=== PATIENT | female | born 1975 | race Caucasian/White ===

== ENCOUNTER → 2018-09-07 11:27 | Outpatient (CLI) | payer OTHER, MEDICAID, SELFPAY ==
[2018-09-07 12:01] LABS: Specimen Label KIT TEST
[2018-09-07 12:29] LABS: Add Manual Diff / Slide Review NO; Basophils Absolute Auto 0 /uL (0-100); Basophils Percent Auto 0.4 % (0-2); Eosinophils Absolute Auto 0 /uL (0-450); Eosinophils Percent Auto 0.7 % (2-4); Hematocrit 40.8 % (36-46); Hemoglobin 13.9 g/dL (12.0-16.0); Lymphocytes Absolute Auto 1000 /uL (1100-4500); Mean Corpuscular HGB Conc 34.1 % (30-36); Mean Corpuscular Hemoglobin 30.3 PG (26-34); Monocytes Absolute Auto 400 /uL (0-900); Monocytes Percent Auto 7.3 % (3-14); Neutrophils Absolute Auto 4300 /uL (1500-7000); Neutrophils Percent Auto 74.6 % (50-75); Platelet Count 307 X10^3/uL (150-400); Red Blood Cell Count 4.58 X10^6/uL (4.0-5.2); Red Cell Distribution Width 15.1 % (11.6-14.8); White Blood Cell Count 5.8 X10^3/uL (4.5-11.0)
[2018-09-07 12:30] LABS: Appearance Urine UA CLEAR; Bilirubin Urine UA NEGATIVE (NEGATIVE); Color Urine UA YELLOW; Glucose Urine UA NEGATIVE (Negative); Ketones Urine UA NEGATIVE (NEGATIVE); Leukocyte Esterase Urine UA NEGATIVE (NEGATIVE); Nitrite Urine UA NEGATIVE (Negative); Occult Blood Urine UA NEGATIVE (Negative); Protein Urine UA TRACE (Negative); Specific Gravity Urine UA 1.015 (1.000-1.035); Urobilinogen Urine UA 0.2 E.U./dL (0.2)
[2018-09-07 13:05] LABS: BUN Creatinine Ratio 22.5 (6-22); Blood Urea Nitrogen 9 mg/dL (7-17); Estimated Glomerular Filt Rate > 60.0 mL/min (>60)
[2018-09-07 17:28] LABS: Hepatitis B Surface Antigen NEGATIVE s/c (NEGATIVE)
[2018-09-07 18:00] LABS: HIV 1 and 2 Antibody NEGATIVE (NEGATIVE); Hep C Virus Ab w/Reflex Quant NEGATIVE s/c (NEGATIVE)
[2018-09-09 14:06] LABS: RPR Screen Nonreactive (Nonreactive)
== END ==
PROVIDERS: PCP Family Medicine; Visit Provider Specialist
DX: Z34.81 Encounter for supervision of other normal pregnancy, first trimester (principal); O16.1 Unspecified maternal hypertension, first trimester
CPT/HCPCS: 36415; 80055; 81003; 82565; 84520; 86703; 86787; 86803; 86850; 86900; 86901; 87086

== ENCOUNTER → 2018-09-28 11:39 | Outpatient (CLI) | payer OTHER, MEDICAID, SELFPAY ==
[2018-10-04 17:13] LABS: AFP, Serum 33.9 ng/mL; Calc Gestational Age 15.1; Est Date Determined by ULTRASOUND; Maternal Weight 168 lbs; Number of Fetuses 1; Prev Pregnancies Down Syndrome NOT GIVEN
[2018-10-05 17:43] LABS: AFP, Serum 38.6 ng/mL; Calc Gestational Age 15.1; Cigarette Smoker N; Donated Egg NOT GIVEN; Donor Egg Age NOT GIVEN; Estriol, Free 0.39 ng/mL; Inhibin A, Dimeric 281 pg/mL; Maternal Weight 168 lbs; Number of Fetuses 1; Previous Pregnancy Down Syndro NOT GIVEN; hCG, MoM 3.56; hCG, Serum 141.8 IU/mL
== END ==
PROVIDERS: PCP Family Medicine; Visit Provider Specialist
DX: Z3A.15 15 weeks gestation of pregnancy (principal); Z34.82 Encounter for supervision of other normal pregnancy, second trimester
CPT/HCPCS: 36415; 82105; 82677; 84702; 86336

== ENCOUNTER → 2018-11-03 10:49 | Outpatient (CLI) | payer OTHER, MEDICAID, SELFPAY ==
--- NOTE | 2018-11-03 10:50 | DI.US.S_ITS ---
PROCEDURE: US OB >= 14 WEEKS FETUS INDICATIONS: 20 wk anatomy scan OUTSIDE/PRIOR DATING DATA: Last menstrual period (LMP): Not available. LMP-based estimated date of delivery (ERICKA): None available. First dating scan (date and location): This study, 11/03/18. Estimated date of delivery (ERICKA) from first dating scan: 03/20/19+ or -2 weeks based on this study.. TECHNIQUE: Real-time scanning was performed of the fetus, with image documentation and biometric measurements. Endovaginal scanning: Not necessary for this examination COMPARISON: None. FINDINGS: General: A single living intrauterine gestation is present. Presentation: Transverse head right Placenta: Placental position is fundal anterior, without previa. Amniotic fluid index: 14.6 cm, normal range is 5-24 cm. heart rate: 155 beats per minute. Maternal cervical canal: 3.6 cm long. Normal lower limit is 2.5 cm. biometrics: Biparietal diameter: 4.7 cm, 20 weeks 1 day Head circumference: 17.8 cm, 20 weeks 2 days Abdominal circumference: 16.2 cm, 21 weeks 2 days Femur length: 3.1 cm, 19 weeks 5 days Estimated gestational age from initial scan: 19 weeks 2 days Composite gestational age from present scan: 20 weeks 3 days Estimated weight and percentile: 359 g, 97th percentile Measurement variability for biometric dating: +/- 7 days from 14 weeks to 15 weeks 6 days gestation, +/- 10 days from 16 weeks to 21 weeks 6 days gestation, +/- 2 weeks from 22 weeks to 27 weeks 6 days gestation, +/- 3 weeks for 28 weeks gestation or later. weight reference: 4500 g or EFW >90/95% is considered macrosomia or large for gestational age. EFW <10% is small for gestational age. EFW 5% or less is considered intra-uterine growth restriction. Anatomic survey: Neuro: Ventricles are non-dilated at less than 10 mm. Cisterna magna is normal at 3-11 mm. Cerebellum is normal in size and morphology. Nuchal skin fold: Normal at less than 6 mm between 14-21 weeks gestational age. Face: Nose and lips, facial profile are normal. Spine: No evidence for spina bifida. Heart: 4-chambered heart is present, with normal ventricular outflow tracts. Diaphragm: Diaphragm is intact. Stomach: Left-sided stomach is present. Kidneys: No hydronephrosis. Normal is less than 5 mm in 2nd trimester, less than 7 mm in 3rd trimester. Cord: 3-vessel cord has orthotopic insertion. Cord insertion is approximately 1.4 cm from the placental margin. Bladder: Normal in size. Extremities: All 4 extremities identified. IMPRESSION: No anomaly seen. Cord insertion is approximately 1.4 cm from the placental margin. Current estimated gestational age is 19 weeks 2 days. There reportedly is a prior OB ultrasound not available for review and if the projected delivery date reported from that ultrasound are correct (not confirmed) the weight currently may be at the upper 97th percentile. The current study raises concern for possible early macrosomia. Dictated by Ceasar Miller M.D. on 11/03/2018 at 13:50 Approved by: Ceasar Miller M.D. on 11/03/2018 at 14:02
== END ==
PROVIDERS: PCP Family Medicine; Visit Provider Specialist
DX: Z34.82 Encounter for supervision of other normal pregnancy, second trimester (principal); Z3A.20 20 weeks gestation of pregnancy
CPT/HCPCS: 76811

== ENCOUNTER → 2018-11-13 11:40 | Outpatient (CLI) | payer OTHER, MEDICAID, SELFPAY ==
[2018-11-13 12:09] LABS: Add Manual Diff / Slide Review NO; Basophils Absolute Auto 0 /uL (0-100); Basophils Percent Auto 0.4 % (0-2); Eosinophils Absolute Auto 100 /uL (0-450); Hematocrit 35.5 % (36-46); Hemoglobin 12.1 g/dL (12.0-16.0); Lymphocytes Absolute Auto 1000 /uL (1100-4500); Lymphocytes Percent Auto 13.5 % (25-40); Mean Corpuscular Hemoglobin 31.3 PG (26-34); Mean Corpuscular Volume 92.1 fL (80-100); Monocytes Absolute Auto 600 /uL (0-900); Monocytes Percent Auto 7.3 % (3-14); Neutrophils Absolute Auto 5900 /uL (1500-7000); Neutrophils Percent Auto 77.8 % (50-75); Platelet Count 312 X10^3/uL (150-400); Red Blood Cell Count 3.85 X10^6/uL (4.0-5.2); White Blood Cell Count 7.6 X10^3/uL (4.5-11.0)
[2018-11-13 12:44] LABS: Free T4, Direct Thyroxine 1.65 ng/dL (0.78-2.19)
[2018-11-13 12:58] LABS: Thyroid Stimulating Hormone 2.11 uIU/mL (0.47-4.68)
== END ==
PROVIDERS: PCP Family Medicine; Visit Provider Specialist
DX: Z34.82 Encounter for supervision of other normal pregnancy, second trimester (principal); E03.9 Hypothyroidism, unspecified
CPT/HCPCS: 36415; 84439; 84443; 85025

== ENCOUNTER → 2018-12-20 10:59 | Outpatient (CLI) | payer OTHER, MEDICAID, SELFPAY ==
[2018-12-20 13:33] LABS: Blood Urea Nitrogen 11 mg/dL (7-17); Estimated Glomerular Filt Rate > 60.0 mL/min (>60); GTT (PREG) 1 Hour PP 50gm Dose 186 mg/dL (76-139)
[2018-12-20 13:50] LABS: Free T4, Direct Thyroxine 1.37 ng/dL (0.78-2.19)
[2018-12-20 14:00] LABS: Hematocrit 33.3 % (36-46); Hemoglobin 11.5 g/dL (12.0-16.0)
[2018-12-20 14:03] LABS: Thyroid Stimulating Hormone 1.34 uIU/mL (0.47-4.68)
== END ==
PROVIDERS: PCP Family Medicine; Visit Provider Specialist
DX: O16.2 Unspecified maternal hypertension, second trimester (principal); Z3A.26 26 weeks gestation of pregnancy; R53.83 Other fatigue
CPT/HCPCS: 36415; 82565; 82950; 84439; 84443; 84520; 85014; 85018; 86850

== ENCOUNTER → 2018-12-22 14:06 | Outpatient (CLI) | payer OTHER, MEDICAID, SELFPAY ==
[2018-12-22 17:50] LABS: Collection Time Urine 24 Hours; Creatinine 24 Hour Urine 2115 mg/day (800-1800); Creatinine Urine Random 70.5 mg/dL; Protein (Total) Urine Random 13 mg/dL (0-12); Total Protein 24 Hour Urine 390 mg/day (42-225); Total Volume Urine 3000 mL
== END ==
PROVIDERS: PCP Family Medicine; Visit Provider Specialist
DX: O16.2 Unspecified maternal hypertension, second trimester (principal)
CPT/HCPCS: 82570; 84156

== ENCOUNTER → 2018-12-25 10:38 | Outpatient (CLI) | payer OTHER, MEDICAID, SELFPAY ==
[2018-12-25 13:11] LABS: Glucose 1 Hour Gest 174 mg/dL (76-180)
[2018-12-25 13:59] LABS: Glucose Tol Interp,Gestational INTERPRETATION
[2018-12-25 14:18] LABS: Glucose 2 Hour Gest 155 mg/dL (76-155)
[2018-12-25 15:45] LABS: Glucose 3 Hour Gest 101 mg/dL (76-140)
[2018-12-25 17:58] LABS: Glucose Fasting Gestational 87 mg/dL (76-95)
== END ==
PROVIDERS: PCP Family Medicine; Visit Provider Specialist
DX: O99.810 Abnormal glucose complicating pregnancy (principal); Z3A.27 27 weeks gestation of pregnancy
CPT/HCPCS: 36415; 82951; 82952

== ENCOUNTER 2019-02-01 12:03 | Outpatient (CLI) | payer OTHER, MEDICAID, SELFPAY ==
--- NOTE | 2019-02-01 13:43 | PM.OBTRLD ---
Visit Information Visit Information Date of evaluation: 02/01/19 Primary OB Provider: Destinee Alvarez Reason for Evaluation: Yes non-stress test non-stress test reason: hypertension/pre-eclampsia Evaluation Evaluation Baseline heart rate: 140 Variability: Average (6-10) monitor accelerations: Present monitor decelerations: Episodic Contraction Frequency (minutes): 0 Diagnosis, Plan/Disposition Final Diagnosis (1) 32 weeks gestation of : Current Visit: Yes Status: Acute (2) Hypertension affecting in first trimester: Current Visit: No Status: Chronic Plan/Disposition Plan: monitoring strip appropriate for 32 weeks. She will have weekly visits in [facility] Disposition: home
== END 2019-02-01 13:51 | disposition home or self-care (01) ==
LOC: LABOR 12:49 → OB 16:41
PROVIDERS: PCP Family Medicine; Visit Provider Specialist
DX: O16.1 Unspecified maternal hypertension, first trimester (principal); Z3A.32 32 weeks gestation of pregnancy
CPT/HCPCS: 59025; 59050; G0378; G0379

== ENCOUNTER 2019-02-07 12:30 | Outpatient (CLI) | payer OTHER, MEDICAID, SELFPAY ==
--- NOTE | 2019-02-07 13:25 | P.TNLD_ITS ---
Visit Information Visit Information Date of evaluation: 02/07/19 Primary OB Provider: Destinee Alvarez Reason for Evaluation: Yes non-stress test non-stress test reason: hypertension/pre-eclampsia Vital Signs Vital Signs: Blood pressure 102/61, pulse 78, temperature 35? point Evaluation Evaluation Baseline heart rate: 140 Variability: Moderate (11-25) monitor accelerations: Present monitor decelerations: Absent Diagnosis, Plan/Disposition Final Diagnosis (1) 33 weeks gestation of : Current Visit: Yes Status: Acute (2) Hypertension affecting in third trimester: Current Visit: Yes Status: Acute Plan/Disposition Plan: Reactive nonstress test for continue weekly nonstress tests and appoin tments. OB Disposition: home
== END 2019-02-07 13:38 | disposition home or self-care (01) ==
LOC: LABOR 13:10 → OB 15:55
PROVIDERS: PCP Family Medicine; Visit Provider Specialist
DX: O16.3 Unspecified maternal hypertension, third trimester (principal); Z3A.33 33 weeks gestation of pregnancy
CPT/HCPCS: 59025; G0378; G0379

== ENCOUNTER 2019-02-15 12:19 | Outpatient (CLI) | payer OTHER, MEDICAID, SELFPAY ==
--- NOTE | 2019-02-15 13:26 | PM.OBTRLD ---
Visit Information Visit Information Date of evaluation: 02/15/19 Primary OB Provider: Destinee Alvarez Reason for Evaluation: Yes non-stress test non-stress test reason: hypertension/pre-eclampsia Vital Signs Vital Signs: Blood pressure is 124/80, pulse of 85, Evaluation Evaluation Baseline heart rate: 135 Variability: Moderate (11-25) monitor accelerations: Present monitor decelerations: Absent Contraction Frequency (minutes): 0 Diagnosis, Plan/Disposition Final Diagnosis (1) Hypertension affecting in third trimester: Current Visit: No Status: Acute (2) 34 weeks gestation of : Current Visit: Yes Status: Acute Plan/Disposition Plan: Continue weekly visits and nonstress tests OB Disposition: home
== END 2019-02-15 13:26 | disposition home or self-care (01) ==
LOC: LABOR 12:45 → OB 02-22 12:02
PROVIDERS: PCP Family Medicine; Visit Provider Specialist
DX: O16.3 Unspecified maternal hypertension, third trimester (principal); Z3A.34 34 weeks gestation of pregnancy
CPT/HCPCS: 59025; G0378; G0379

== ENCOUNTER 2019-02-22 12:52 | Outpatient (CLI) | payer OTHER, MEDICAID, SELFPAY ==
[2019-02-22 13:17] LABS: Add Manual Diff / Slide Review NO; Basophils Absolute Auto 0 /uL (0-100); Basophils Percent Auto 0.3 % (0-2); Eosinophils Absolute Auto 100 /uL (0-450); Hematocrit 36.2 % (36-46); Hemoglobin 12.4 g/dL (12.0-16.0); Lymphocytes Absolute Auto 1000 /uL (1100-4500); Lymphocytes Percent Auto 14.9 % (25-40); Mean Corpuscular HGB Conc 34.2 % (30-36); Mean Corpuscular Hemoglobin 30.4 PG (26-34); Mean Corpuscular Volume 89.1 fL (80-100); Monocytes Absolute Auto 600 /uL (0-900); Monocytes Percent Auto 9.6 % (3-14); Neutrophils Absolute Auto 4900 /uL (1500-7000); Neutrophils Percent Auto 74.2 % (50-75); Platelet Count 300 X10^3/uL (150-400); Red Blood Cell Count 4.07 X10^6/uL (4.0-5.2); Red Cell Distribution Width 15.4 % (11.6-14.8); White Blood Cell Count 6.6 X10^3/uL (4.5-11.0)
[2019-02-22 13:49] LABS: Alanine Aminotransferase 18 IU/L (9-52); Aspartate Aminotransferase 21 IU/L (14-36); Blood Urea Nitrogen 7 mg/dL (7-17); Estimated Glomerular Filt Rate > 60.0 mL/min (>60); Uric Acid 4.6 mg/dL (2.5-6.2)
== END 2019-02-22 13:45 | disposition home or self-care (01) ==
LOC: LABOR 13:41 → OB 02-26 12:27
PROVIDERS: PCP Family Medicine; Visit Provider Specialist
DX: O13.3 Gestational [pregnancy-induced] hypertension without significant proteinuria, third trimester (principal); Z3A.36 36 weeks gestation of pregnancy
CPT/HCPCS: 36415; 59025; 82565; 84450; 84460; 84520; 84550; 85025; G0378; G0379

== ENCOUNTER 2019-03-01 12:10 | Outpatient (CLI) | payer OTHER, MEDICAID, SELFPAY ==
--- NOTE | 2019-03-01 13:39 | PM.OBTRLD ---
Visit Information Visit Information Date of evaluation: 03/01/19 Primary OB Provider: Destinee Alvarez Reason for Evaluation: Yes non-stress test non-stress test reason: hypertension/pre-eclampsia Vital Signs Vital Signs: Blood pressure systolic 99 Evaluation Evaluation Baseline heart rate: 140 Variability: Moderate (11-25) monitor accelerations: Present monitor decelerations: Absent Contraction Frequency (minutes): 0 Category of Tracing: I Diagnosis, Plan/Disposition Final Diagnosis (1) Hypertension affecting in third trimester: Current Visit: No Status: Acute Plan/Disposition Plan: Continue weekly nonstress tests and visits. scheduled in 8 days. Routine precautions. OB Disposition: home
== END 2019-03-01 13:38 | disposition home or self-care (01) ==
LOC: LABOR 12:34 → OB 03-06 09:29
PROVIDERS: PCP Family Medicine; Visit Provider Family Medicine
DX: O16.3 Unspecified maternal hypertension, third trimester (principal)
CPT/HCPCS: 59025; G0378; G0379

== ENCOUNTER 2019-03-07 12:58 | Outpatient (CLI) | payer OTHER, MEDICAID, SELFPAY ==
--- NOTE | 2019-03-07 14:18 | PM.OBTRLD ---
Visit Information Visit Information Date of evaluation: 03/07/19 Primary OB Provider: Destinee Alvarez Reason for Evaluation: Yes non-stress test non-stress test reason: hypertension/pre-eclampsia Vital Signs Vital Signs: Blood pressure 106/82, pulse 81 Evaluation Evaluation Baseline heart rate: 130 monitor accelerations: Present monitor decelerations: Absent Category of Tracing: I Diagnosis, Plan/Disposition Final Diagnosis (1) Hypertension affecting in third trimester: Current Visit: No Status: Acute (2) 37 weeks gestation of : Current Visit: No Status: Acute Plan/Disposition Plan: Patient is scheduled for repeat on 03/09/2019 call for concerns prior to that OB Disposition: home
== END 2019-03-07 14:03 | disposition home or self-care (01) ==
LOC: LABOR 13:22 → OB 03-09 12:42
PROVIDERS: PCP Family Medicine; Visit Provider Specialist
DX: O16.3 Unspecified maternal hypertension, third trimester (principal); Z3A.37 37 weeks gestation of pregnancy
CPT/HCPCS: 59025; G0378; G0379

== ENCOUNTER 2019-03-09 05:59 | Inpatient (IN) | payer OTHER, MEDICAID, SELFPAY ==
[2019-03-09] VITALS (26 sets, daily range): BP systolic 144–175; BP diastolic 76–106; PULSE 57–94; RESP 10–29; TEMP 35.9–37.4; O2SAT 93–96
[2019-03-09] MEDS: LACTATED RINGERS 1,000 ML 1000 ML IV (06:36)
[2019-03-09] MEDS: CITRIC ACID/SODIUM CITRATE 15 ML SOLUTION 30 ML PO (06:47)
--- NOTE | 2019-03-09 07:31 | PM.OBHP.1 ---
OB HPI Date/Time Date of admission: 03/09/19 Date Patient Seen: 03/09/19 Time Patient Seen: 07:32 History of Present Condition Chief complaint: [id number] : 6 Para: 4 Estimated Date of Delivery: 03/21/19 Estimated Gestational Age (weeks): 38 Narrative: Tayla Lombardi is a 43 year old female admitted for repeat section at 38 weeks due to uncontrolled hypertension Indications Operative indications ( section): previous uterine surgery History of Present care: good care, initiated at week # (9), number of visits (15) and pounds weight gain (33) Dating criteria: LMP confirmed by 1st trimester US Ultrasounds: normal mid trimester US Medical complications: other (Hypertension) Preadmission Labs Blood type: A (-) negative -: Antibody screen: negative, HBsAG: negative, HIV: negative and RPR/VDLR: negative -: Rubella: immune HCAB: negative PAP: Normal Cell-free DNA: Normal 1 hr GTT: 187 3 hr GTT: 1 hr (174), 2 hr (155) and 3 hr (101) Fasting blood glucose: 87 Prior (ies) History: 06/02/05 38 weeks 6 lb 10 oz male for hypertension 05/31/07 38 weeks 5 lb 14 oz male 06/18/09 39 weeks 6 lb 4 oz female 01/08/2017 37 weeks 5 lb male hypertension Evaluation Evaluation Baseline heart rate: 140 Variability: Moderate (11-25) monitor accelerations: Present monitor decelerations: Absent Contraction Frequency (minutes): 0 Category of Tracing: I PFSH Medical History (Updated 03/09/19 @ 07:46 by Destinee Alvarez MD) Hypertension (Chronic) Thyroid cancer (Inactive) Surgical History (Updated 03/09/19 @ 07:46 by Destinee Alvarez MD) H/O thyroidectomy (Chronic) Meds Home Medications Medication Instructions Recorded Confirmed Type labetalol 300 mg tablet 600 mg PO BID #120 tab 02/26/19 03/09/19 Rx labetalol 300 mg PO DAILY 03/09/19 03/09/19 History levothyroxine 275 mcg PO DAILY 03/09/19 03/09/19 History Allergies Allergy/AdvReac Type Severity Reaction Status Date / Time No Known Drug Allergies Allergy Verified 03/09/19 06:33 Review of Systems Review of Systems Patient is feeling slightly ill. No significant headaches. Good movement. No fevers. All systems reviewed & are unremarkable except as noted in HPI and below Exam Vital Signs (past 8 hours): Blood pressure 166/93, pulse 78, temperature 98.3? Narrative Exam Narrative: HEENT exam within normal limits. Lungs are clear to auscultation and percussion. Heart is regular rate and rhythm no S3-S4 or murmurs. Abdomen is soft, nontender. Extremities with trace edema and nontender. Objective Labs Result Diagrams: 03/09/19 06:35 Assessment and Plan Assessment and Plan Assessment and Plan narrative: Thirty-eight week gestation with uncontrolled hypertension with 2 prior C-sections for repeat section
--- NOTE | 2019-03-09 07:39 | P.HPOB_ITS ---
OB HPI Date/Time Date of admission: 03/09/19 Date Patient Seen: 03/09/19 Time Patient Seen: 07:32 History of Present Condition Chief complaint: [id number] : 6 Para: 4 Estimated Date of Delivery: 03/21/19 Estimated Gestational Age (weeks): 38 Narrative: Tayla Lombardi is a 43 year old female admitted for re peat section at 38 weeks due to uncontrolled hypertension Indications Operative indications ( section): previous uterine surgery History of Present care: good care, initiated at week # (9), number of visits (15) and pounds weight gain (33) Dating criteria: LMP confirmed by 1st trimester US Ultrasounds: normal mid trimester US Medical complications: other (Hypertension) Preadmission Labs Blood type: A (-) negative -: Antibody screen: negative, HBsAG: negative, HIV: negative and RPR/VDLR: negative -: Rubella: immune HCAB: negative PAP: Normal Cell-free DNA: Normal 1 hr GTT: 187 3 hr GTT: 1 hr (174), 2 hr (155) and 3 hr (101) Fasting blood glucose: 87 Prior (ies) History: 06/02/05 38 weeks 6 lb 10 oz male for hypertension 05/31/07 38 weeks 5 lb 14 oz male 06/18/09 39 weeks 6 lb 4 oz female 01/08/2017 37 weeks 5 lb male hypertension Evaluation Evaluation Baseline heart rate: 140 Variability: Moderate (11-25) monitor accelerations: Present monitor decelerations: Absent Contraction Frequency (minutes): 0 Category of Tracing: I PFSH Medical History (Updated 03/09/19 @ 07:46 by Destinee Alvarez MD) Hypertension (Chronic) Thyroid cancer (Inactive) Surgical History (Updated 03/09/19 @ 07:46 by Destinee Alvarez MD) H/O thyroidectomy (Chronic) Meds Home Medications Medication Instructions Recorded Confirmed Type labetalol 300 mg tablet 600 mg PO BID #120 tab 02/26/19 03/09/19 Rx labetalol 300 mg PO DAILY 03/09/19 03/09/19 History levothyroxine 275 mcg PO DAILY 03/09/19 03/09/19 History Allergies Allergy/AdvReac Type Severity Reaction Status Date / Time No Known Drug Allergies Allergy Verified 03/09/19 06:33 Review of Systems Review of Systems Patient is feeling slightly ill. No significant headaches. Good movement. No fevers. All systems reviewed & are unremarkable except as noted in HPI and below Exam Vital Signs (past 8 hours): Blood pressure 166/93, pulse 78, temperature 98.3? Narrative Exam Narrative: HEENT exam within normal limits. Lungs are clear to auscultation and percussion. Heart is regular rate and rhythm no S3-S4 or murmurs. Abdomen is soft, nontender. Extremities with trace edema and nonten brenna. Objective Labs Result Diagrams: 03/09/19 06:35 Assessment and Plan Assessment and Plan Assessment and Plan narrative: Thirty-eight week gestation with uncontrolled hypertension with 2 prior C-sections for repeat section
[2019-03-09 07:44] LABS: Add Manual Diff / Slide Review NO; Basophils Absolute Auto 0 /uL (0-100); Basophils Percent Auto 0.3 % (0-2); Eosinophils Absolute Auto 100 /uL (0-450); Eosinophils Percent Auto 0.8 % (2-4); Hematocrit 33.8 % (36-46); Hemoglobin 11.8 g/dL (12.0-16.0); Lymphocytes Absolute Auto 1200 /uL (1100-4500); Lymphocytes Percent Auto 18.4 % (25-40); Mean Corpuscular Hemoglobin 30.8 PG (26-34); Mean Corpuscular Volume 88.1 fL (80-100); Monocytes Absolute Auto 500 /uL (0-900); Monocytes Percent Auto 7.9 % (3-14); Neutrophils Absolute Auto 4900 /uL (1500-7000); Neutrophils Percent Auto 72.6 % (50-75); Platelet Count 279 X10^3/uL (150-400); Red Blood Cell Count 3.84 X10^6/uL (4.0-5.2); Red Cell Distribution Width 15.8 % (11.6-14.8); White Blood Cell Count 6.7 X10^3/uL (4.5-11.0)
--- NOTE | 2019-03-09 07:50 | SUR.OPER ---
Supine on Padded OR bed, head on pillow, safety belt at thigh, arms secured on padded arm boards at <90 degrees abduction. Bump under right buttock. Legs uncrossed with pillow under knees, gel pad to heels, tape over blanket to lower legs.
[2019-03-09] MEDS: LACTATED RINGERS 1,000 ML 42 ML IV ×2 (08:04→10:18)
[2019-03-09] MEDS: CEFAZOLIN 2 GM/100 ML FROZ.PIGGY IV (09:10)
--- NOTE | 2019-03-09 10:06 | SUR.OPER ---
heart tones at 132 prior to incision, of a healthy baby boy at 0950, placenta delivered at 0952. at 9/9, cord blood and placenta given to OB RN
[2019-03-09] MEDS: ACETAMINOPHEN IV 1,000 MG/100 ML VIAL 400 MG IV (10:11)
--- NOTE | 2019-03-09 10:36 | P.OP_ITS ---
Operative Date/Time/Diagnoses Date of procedure: 03/09/19 Time of procedure: 10:34 Pre-op diagnosis: Prior section with uncontrolled hypertension Post-op diagnosis: same Procedure & Clinicians Procedure: Repeat low-transverse section Same procedure as scheduled: Yes Indications: Prior with uncontrolled hypertension Surgeon: Destinee Alvarez Inspector Wire Rope: Debora Mohan Click Yes if Unassisted: No Anesthesia Type: Spinal Operative Notes Findings: Normal tubes ovaries and uterus. Viable male weighing 7 lb 6 oz Closure Type: primary Specimen(s): none sent Applied: catheter Estimated Blood Loss (mL): 300 Blood products transfused: none Procedure in detail: The patient was brought to the operating room where she underwent a spinal for anesthesia. She was placed in a supine position with a left lateral tilt. A Hall catheter was placed. Pulsatile stockings were placed and functional throughout the case. 2 g of Ancef were given IV prior to the incision. Warmin g was in place. The patient was prepped and draped in usual sterile fashion. A low transverse incision was made with a scalpel through the prior low transverse scar and the incision was carried down to the fascial layer which was incised transversely with scissors. The midline attachments are superiorly and inferiorly. Some bleeding was controlled Bovie. The rectus muscles were in the midline and the peritoneal incision was made with no damage to internal structures. The peritoneum was incised and superiorly and inferiorly. Bladder blade was placed and a bladder flap was developed and the bladder held away from the lower uterine segment. An incision was made in the uterus with the scalpel and the incision was extended with stretching. The head was elevated out of the abdomen and with fundal pressure the baby was delivered. The infant was bulb suctioned for clear fluid and handed off to the warmer. Cord blood was collected. The placenta delivered spontaneously with traction. The uterus was cleaned with clean laps. The uterine incision was closed in 2 layers of 0 chromic suture the first a running locking layer the second an imbricating layer. The bladder peritoneum was repaired with 2-0 Polysorb suture. The gutters were cleaned of any remaining fluids and ovaries and tubes were observed to be normal. Adequate hemostasis was noted. The perineum was closed with 2-0 Polysorb suture. The fascia layer was closed with 0 Polysorb suture with 2 stitches. The incision was irrigated and adequate hemostasis noted. The incision was closed with interrupted 3-0 Polysorb sutures and then a subcuticular stitch of 4-0 Polysorb suture. Steri-Strips were placed. The uterus was massaged to remove any clots. The patient went to recovery room in good condition. Counts of instruments and sponges were correct. Complications: none Condition: stable Disposition: other ( center) Plan for aftercare: Routine post section
--- NOTE | 2019-03-09 10:50 | SUR.PHASEI ---
Report called to Netta
--- NOTE | 2019-03-09 11:00 | SUR.PHASEI ---
Attempted to notify Dr. Garcia of bp. unavailable.
--- NOTE | 2019-03-09 11:06 | SUR.PHASEI ---
Dr. Alvarez notified bp 159/103. Labetolol IV ordered and med pending.
[2019-03-09] MEDS: LABETALOL 20 MG/4 ML SYRINGE IV ×2 (11:16→11:37)
--- NOTE | 2019-03-09 11:49 | SUR.PHASEI ---
1135 Dr. Alvarez called, notified bp 169/106, VVO for another 20mg labetalol IV. Med given. 1149 Dr. Alvarez notified bp 165/92, ok to transfer to center per .
--- NOTE | 2019-03-09 12:07 | SUR.PHASEI ---
Pt tranferred to the center. VS stable. Pt c/o feeling sweaty, pt had been mildly diaphoretic. C/O edema to cait hands. Greater on rt hand than left. Dr. Alvarez notified regarding both diaphoresis and edema. Pitocin still infusing in LR. Pad and chux changed with Netta-small to mod amt of blood. Fundus checked with RN.
[2019-03-09] MEDS: OXYCODONE IR 10 MG TABLET PO ×3 (12:31→20:45)
[2019-03-09] MEDS: LABETALOL 100 MG TABLET 200 MG PO (12:31)
[2019-03-09] MEDS: LEVOTHYROXINE 100 MCG TABLET 200 MCG PO ×2 (13:39→13:47)
[2019-03-09] MEDS: LEVOTHYROXINE 75 MCG TABLET PO (13:39)
[2019-03-09] MEDS: KETOROLAC 30 MG/ML VIAL IV ×2 (16:18→22:15)
[2019-03-09] MEDS: NIFEdipine 30 MG TAB ER PO (17:23)
[2019-03-09] MEDS: LACTATED RINGERS 1,000 ML 100 ML IV (18:09)
[2019-03-09] MEDS: ACETAMINOPHEN 325 MG TABLET 650 MG PO (20:45)
[2019-03-09] MEDS: LABETALOL 100 MG TABLET 600 MG PO (20:46)
[2019-03-10] MEDS: OXYCODONE IR 10 MG TABLET PO ×4 (00:50→13:02)
[2019-03-10] MEDS: ACETAMINOPHEN 325 MG TABLET 650 MG PO ×2 (02:55→09:05)
[2019-03-10] MEDS: KETOROLAC 30 MG/ML VIAL IV (04:15)
[2019-03-10] MEDS: LANOLIN OINT 7 GM 1 APPLIC TOP (05:08)
[2019-03-10 06:44] LABS: Add Manual Diff / Slide Review NO; Basophils Absolute Auto 0 /uL (0-100); Basophils Percent Auto 0.2 % (0-2); Eosinophils Absolute Auto 0 /uL (0-450); Eosinophils Percent Auto 0.4 % (2-4); Hemoglobin 9.3 g/dL (12.0-16.0); Lymphocytes Absolute Auto 700 /uL (1100-4500); Lymphocytes Percent Auto 6.8 % (25-40); Mean Corpuscular HGB Conc 35.6 % (30-36); Mean Corpuscular Hemoglobin 31.3 PG (26-34); Mean Corpuscular Volume 87.7 fL (80-100); Monocytes Absolute Auto 600 /uL (0-900); Monocytes Percent Auto 5.6 % (3-14); Neutrophils Absolute Auto 9500 /uL (1500-7000); Platelet Count 226 X10^3/uL (150-400); Red Blood Cell Count 2.97 X10^6/uL (4.0-5.2); Red Cell Distribution Width 15.5 % (11.6-14.8); White Blood Cell Count 10.9 X10^3/uL (4.5-11.0)
[2019-03-10 09:00] VITALS: BP 121/77; PULSE 96
[2019-03-10] MEDS: LABETALOL 100 MG TABLET 600 MG PO (09:00)
[2019-03-10] MEDS: DOCUSATE 250 MG CAPSULE PO (09:04)
[2019-03-10 09:05] VITALS: TEMP 37.4
[2019-03-10] MEDS: NIFEdipine 30 MG TAB ER PO (09:05)
--- NOTE | 2019-03-10 09:47 | PM.OBDS.1 ---
Discharge Providers Date of admission: 03/09/19 05:59 Discharge Date: 03/10/19 Primary care physician: Guilherme Dorantes MD Consults: 03/09/19 11:08 Consult to Gimp Buttonhole Machine Operator Routine Comment: Discharge provider: Mychal Valderrama MD Summary Date Patient Seen: 03/10/19 Time Patient Seen: 09:47 Procedures: Spinal anesthesia Repeat low segment section Hospital Course: Patient was admitted for repeat elective section. Patient underwent without difficulties. Post delivery the patient did well. She remained afebrile stable vital signs. Her IVs were discontinued. Hall was discontinued. She is now voiding well she is now taking p.o. well. She is now ambulating well. Peripartum Data Delivery Method: Section complications: none Status at Discharge Cognitive/behavioral status at discharge: oriented Functional status at discharge: independent ambulation Overall status at discharge: patient is progressing back to baseline Time Spent with Patient Total time spent providing and/or coordinating discharge services: Less than 30 minutes Objective Labs Result Diagrams: 03/10/19 06:34 Labs: Laboratory Results - last 24 hr 03/10/19 06:34 WBC 10.9 D RBC 2.97 L Hgb 9.3 L Hct 26.0 L MCV 87.7 MCH 31.3 MCHC 35.6 RDW 15.5 H Plt Count 226 Neut % (Auto) 87.0 H Lymph % (Auto) 6.8 L [place] % (Auto) 5.6 Eos % (Auto) 0.4 L Baso % (Auto) 0.2 Neut # (Auto) 9500 H Lymph # (Auto) 700 L [place] # (Auto) 600 Eos # (Auto) 0 Baso # (Auto) 0 Exam Vital Signs (past 8 hours): - 03/10/19 09:00 03/10/19 09:05 Temperature 99.3 F Pulse Rate 96 H Blood Pressure 121/77 Oxygen Delivery Method Room Air Narrative Exam Narrative: Fundus U minus two Incision covered with Aquacel dressing Lochia scant Discharge Plan Discharge Plan Patient Disposition: Home Discharge Med Rec/Prescriptions Prescriptions: New ibuprofen 600 mg Tablet 600 mg PO Q6HR PRN (Reason: As Needed For Fever/Mild Pain) Qty: 14 RF: 0 docusate sodium 250 mg Capsule 250 mg PO DAILY Qty: 10 RF: 0 Aya-O-Ajbiwy Cream 1 applic topical PRN PRN (Reason: ) Qty: 1 RF: 0 oxycodone 10 mg Tablet 10 mg PO Q4HR PRN (Reason: Pain, Severe (7-10)) Qty: 10 RF: 0 Continued labetalol 300 mg tablet 600 mg PO BID Qty: 120 RF: 0 levothyroxine 200 mcg Tablet 275 mcg PO DAILY RF: 0 labetalol 100 mg tablet 300 mg PO DAILY RF: 0 Follow up/Referrals: Guilherme Dorantes MD [Primary Care Provider] - Mychal Valderrama MD [Physician] - Destinee Alvarez MD [Physician] - 03/16/19 Provider Discharge Instructions Diet: Diet as Tolerated Activity: Routine activity no stair Skin/Wound/Dressing Care Report to your healthcare provider any signs of infection, such as:: chills, fever, increased pain, unusual drainage and unusual redness Other wound treatment: Aquacel dressing removal in one week Discharge Data Primary Care Provider: Guilherme Dorantes Attending Provider: Destinee Alvarez Admit Date/Time: 03/09/19 05:59
--- NOTE | 2019-03-10 09:50 | P.DS_ITS ---
Discharge Providers Date of admission: 03/09/19 05:59 Discharge Date: 03/10/19 Primary care physician: Guilherme Dorantes MD Consults: 03/09/19 11:08 Consult to Prison Officer Routine Comment: Discharge provider: Mychal Valderrama MD Summary Date Patient Seen: 03/10/19 Time Patient Seen: 09:47 Procedures: Spinal anesthesia Repeat low segment section Hospital Course: Patient was admitted for repeat elective section. Patient underwent C- section without difficulties. Post delivery the patient did well. She remained afebrile stable vital signs. Her IVs were discontinued. Hall was discontinued. She is now voiding well she is now taking p.o. well. She is now ambulating well. Peripartum Data Infant Delivery Method: Section complications: none Status at Discharge Cognitive/behavioral status at discharge: oriented Functional status at discharge: independent ambulation Overall status at discharge: patient is progressing back to baseline Time Spent with Patient Total time spent providing and/or coordinating discharge services: Less than 30 minutes Objective Labs Result Diagrams: 03/10/19 06:34 Labs: Laboratory Results - last 24 hr 03/10/19 06:34 WBC 10.9 D RBC 2.97 L Hgb 9.3 L Hct 26.0 L MCV 87.7 MCH 31.3 MCHC 35.6 RDW 15.5 H Plt Count 226 Neut % (Auto) 87.0 H Lymph % (Auto) 6.8 L [place] % (Auto) 5.6 Eos % (Auto) 0.4 L Baso % (Auto) 0.2 Neut # (Auto) 9500 H Lymph # (Auto) 700 L [place] # (Auto) 600 Eos # (Auto) 0 Baso # (Auto) 0 Exam Vital Signs (past 8 hours): - 03/10/19 09:00 03/10/19 09:05 Temperature 99.3 F Pulse Rate 96 H Blood Pressure 121/77 Oxygen Delivery Method Room Air Narrative Exam Narrative: Fundus U minus two Incision covered with Aquacel dressing Lochia scant Discharge Plan Discharge Plan Patient Disposition: Home Discharge Med Rec/Prescriptions Prescriptions: New ibuprofen 600 mg Tablet 600 mg PO Q6HR PRN (Reason: As Needed For Fever/Mild Pain) Qty: 14 RF: 0 docusate sodium 250 mg Capsule 250 mg PO DAILY Qty: 10 RF: 0 Hmt-H-Ydlydm Cream 1 applic topical PRN PRN (Reason: ) Qty: 1 RF: 0 oxycodone 10 mg Tablet 10 mg PO Q4HR PRN (Reason: Pain, Severe (7-10)) Qty: 10 RF: 0 Continued labetalol 300 mg tablet 600 mg PO BID Qty: 120 RF: 0 levothyroxine 200 mcg Tablet 275 mcg PO DAILY RF: 0 labetalol 100 mg tablet 300 mg PO DAILY RF: 0 Follow up/Referrals: Guilherme Dorantes MD [Primary Care Provider] - Mychal Valderrama MD [Physician] - Destinee Alvarez MD [Physician] - 03/16/19 Provider Discharge Instructions Diet: Diet as Tolerated Activity: Routine activity no stair Skin/Wound/Dressing Care Report to your healthcare provider any signs of infection, such as:: chills, fever, increased pain, unusual drainage and unusual redness Other wound treatment: Aquacel dressing removal in one week Discharge Data Primary Care Provider: Guilherme Dorantes Attending Provider: Destinee Alvarez Admit Date/Time: 03/09/19 05:59
[2019-03-10 10:19] VITALS: BP 121/77; PULSE 96; RESP 17; TEMP 37.4
[2019-03-10] MEDS: LEVOTHYROXINE 100 MCG TABLET 200 MCG PO (11:46)
[2019-03-10] MEDS: LEVOTHYROXINE 75 MCG TABLET PO (11:53)
== END 2019-03-10 13:00 | disposition home or self-care (01) | DRG 540 ==
PROVIDERS: Admitting Provider Specialist; PCP Family Medicine; Visit Provider Specialist
PROC: 10D00Z1 Extraction of Products of Conception, Low, Open Approach (ICD-10-PCS; CPT 59514; principal; 2019-03-09 07:45)
DX: O10.02 Pre-existing essential hypertension complicating childbirth (principal); O34.211 Maternal care for low transverse scar from previous cesarean delivery; Z3A.38 38 weeks gestation of pregnancy; Z37.0 Single live birth
CPT/HCPCS: 36415; 59050; 59514; 85025; 86850; 86900; 86901; J0131; J0171; J0690; J1885; J2274; J2590

== ENCOUNTER → 2019-03-16 12:13 | Outpatient (CLI) | payer OTHER, MEDICAID, SELFPAY | PROVIDERS: PCP Family Medicine; Visit Provider Specialist | DX: R30.0 Dysuria (principal) | CPT/HCPCS: 87077; 87086; 87147; 87186 ==